=== PATIENT | male | born 1995 | race Caucasian/White ===

== ENCOUNTER 2018-10-21 04:04 | Emergency (ER) | payer MEDICAID ==
[2018-10-21 04:04] VITALS: BMI 20.7
[2018-10-21 04:17] VITALS: O2SAT 98
--- NOTE | 2018-10-21 04:27 | C.PDOC ---
History Of Present Illness patient states that he felt a"lump" on his left testicle around 7 pm and is it uncomfortable. He did some heavy lifting, no no sudden pain. No urinary difficulties, no trauma Time Seen by Provider: 10/21/18 04:27 Chief Complaint (Nursing): Male Genitourinary History Per: Patient History/Exam Limitations: no limitations Onset/Duration Of Symptoms: Hrs (19), Sudden Onset Current Symptoms Are (Timing): Still Present Severity: Mild Pain Scale Rating Of: 2 Quality Of Discomfort: Unable To Describe Associated Symptoms: denies: Fever, Chills, Nausea, Vomiting Alleviating Factors: None Recent travel outside of the [place]: No Additional History Per: Patient Past Medical History Reviewed: Historical Data, Nursing Documentation, Vital Signs Vital Signs: Last Vital Signs Temp 97.7 F 10/21/18 04:12 Pulse 53 L 10/21/18 04:12 Resp 18 10/21/18 04:12 BP 123/66 10/21/18 04:12 Pulse Ox 98 10/21/18 04:12 - Medical History PMH: Asthma Family History: States: No Known Family Hx - Social History Hx Alcohol Use: No Hx Substance Use: Yes (Nov) - Immunization History Hx Tetanus Toxoid Vaccination: No Hx Influenza Vaccination: No Hx Pneumococcal Vaccination: No Physical Exam - Physical Exam Appears: Non-toxic, No Acute Distress Gastrointestinal/Abdominal: Soft, No Tenderness, No Distention Male Genital: Testicular Tenderness (mild left testicle,), No Testicular Swelling, No Inguinal Tenderness, No Inguinal Swelling, No Scrotal Swelling, Circumcised ED Course And Treatment O2 Sat by Pulse Oximetry: 98 Pulse Ox Interpretation: Normal Disposition Counseled Patient/Family Regarding: Studies Performed, Diagnosis - Disposition Disposition Time: 04:27 Condition: FAIR Forms: [employer] ([place]) - Clinical Impression Clinical Impression: Testicular pain, left Physician Patient Turnover Patient Signed Over To: Sisi Guillermo Handoff Comments: pending US and disposition
[2018-10-21] MEDS ORDERED: Alum-Mag Hydrox-Simethicone Susp (30 mL) ONE (04:33)
[2018-10-21 09:22] LABS: URINE BACTERIA RARE (<OCC); URINE BILIRUBIN NEGATIVE (NEGATIVE); URINE BLOOD NEGATIVE (NEGATIVE); URINE CLARITY Hazy (Clear); URINE COLOR Yellow (YELLOW); URINE GLUCOSE (UA) NORMAL (Normal); URINE LEUKOCYTE ESTERASE NEG Leu/uL (Negative); URINE PROTEIN NEGATIVE (NEGATIVE)
[2018-10-21] MEDS ORDERED: cefTRIAXone 250 MG, Lidocaine Hydrochloride 1% 1 ML IM ONE (10:14)
[2018-10-21] MEDS ORDERED: cefTRIAXone 250 MG in Lidocaine Hydrochloride 0.9 ML IM ONE (10:30)
[2018-10-21 10:40] VITALS: BP 100/54; PULSE 55; RESP 20; TEMP 97.4
--- NOTE | 2018-10-21 11:59 | US ---
Date of service: 10/21/2018 HISTORY: left testicular pain TECHNIQUE: Realtime sonography through the scrotum with color and doppler flow. COMPARISON: None Available. FINDINGS: RIGHT TESTICLE: Measures 3.8 x 2.2 x 3.2 cm. Homogeneous echotexture. Blood flow is demonstrated. RIGHT EPIDIDYMIS: Unremarkable. LEFT TESTICLE: Measures 4.3 x 2.1 x 2.7 cm. Homogeneous echotexture. Blood flow is demonstrated. LEFT EPIDIDYMIS: Unremarkable. HYDROCELE: None. VARICOCELE: None. OTHER FINDINGS: None. IMPRESSION: No acute findings. Preliminary impression was provided by [employer].
== END 2018-10-21 10:49 | disposition home or self-care (01) ==
LOC: C.ER 04:04
DX: N50.812 Left testicular pain (principal)
CPT/HCPCS: 76870; 81001; 96372; 99284; J0696